=== PATIENT | male | born 1975 | race Caucasian/White ===

== ENCOUNTER → 2022-07-27 | Outpatient (CLI) | payer OTHER | END | disposition home or self-care (01) | LOC: CT 02:08 | PROVIDERS: ATTEND Specialist | DX: J34.2 Deviated nasal septum (principal); J01.91 Acute recurrent sinusitis, unspecified; J34.1 Cyst and mucocele of nose and nasal sinus; J34.89 Other specified disorders of nose and nasal sinuses ==

== ENCOUNTER → 2022-10-18 | Day surgery (SDC) | payer OTHER ==
[2022-09-23 14:26] VITALS: BP 125/69
[~2022-10-18] VITALS: Ht 182.8 cm; Wt 95.3 kg
[~2022-10-18] MED LIST: ONE DAILY WITH1 EACH PO; PROSTATE HEALT1 EACH PO; ZINC30 M1 PO
== END | disposition home or self-care (01) ==
LOC: SDC 09-23 14:00
PROVIDERS: ATTEND Specialist
DX: J34.2 Deviated nasal septum (principal); Z53.8 Procedure and treatment not carried out for other reasons

== ENCOUNTER 2023-12-16 17:24 | Emergency (ER) | payer BC ==
[~2023-12-16] VITALS: Ht 182.8 cm; Wt 99.8 kg
[~2023-12-16 17:24] MED LIST changes: +Clarithromycin250 MG PO; +HYDROCODONE-AC1 EACH PO
[2023-12-16] MEDS ORDERED: Acetaminophen/Hydrocodone 5 MG/325 MG TABLET PO ONE (17:45)
[2023-12-16] MEDS ORDERED: HYDROCODONE-AC1 EAC1 PO (18:12)
[2023-12-17] MEDS ORDERED: PERCOCET 5-3251 EACH PO (07:50)
== END 2023-12-16 18:19 | disposition home or self-care (01) ==
LOC: ED 17:24
DX: S42.101A Fracture of unspecified part of scapula, right shoulder, initial encounter for closed fracture (principal); Z88.0 Allergy status to penicillin; Z98.890 Other specified postprocedural states; W11.XXXA Fall on and from ladder, initial encounter; Y93.89 Activity, other specified; Y92.009 Unspecified place in unspecified non-institutional (private) residence as the place of occurrence of the external cause; Y99.8 Other external cause status